=== PATIENT | male | born 1990 | race Asian ===

== ENCOUNTER 2016-04-08 | Emergency (ER) | payer SELFPAY | END 2016-04-08 20:16 | disposition home or self-care (01) ==

== ENCOUNTER 2023-09-01 21:39 | Outpatient (CLI) | payer OTHER ==
--- NOTE | 2023-09-02 23:28 | Ultrasound Report ---
PROCEDURE: Extremity Soft Tissue Limited INDICATIONS: FOREARM MASS TECHNIQUE: Real-time scanning was performed of the right forearm, with image documentation. COMPARISON: None. FINDINGS: Ultrasound examination of right forearm at patient's reported area of palpable lump shows a 7 x 3 x 8 mm oval echogenic and solid appearing structure within subcutaneous soft tissue and show no internal vascularity. There is also a 5 x 2 x 4 mm echogenic focus in forearm subcutaneous soft ti ssue and show no internal vascularity. IMPRESSION: Finding may represent small subcentimeter lipoma versus other type of soft tissue nodule s. Clinical correlation and follow-up is recommend. Reviewed by: Srikanth Harrell MD on 09/02/2023 11:27 PM PDT Approved by: Srikanth Harrell MD on 09/02/2023 11:27 PM PDT Station ID: [id number]
== END 2023-09-01 21:40 | disposition home or self-care (01) ==
LOC: DI 21:39
PROVIDERS: ATTEND Internal Medicine
DX: R22.31 Localized swelling, mass and lump, right upper limb (principal)